=== PATIENT | male | born 1990 | race Caucasian/White ===

== ENCOUNTER → 2023-03-04 | Outpatient (CLI) | payer OTHER ==
[2023-03-04 15:58] LABS: BASOPHILS ABSOLUTE AUTO 0.05 K/mm3 (0.00-0.23); BASOPHILS PERCENT AUTO 1 % (0-2); EOSINOPHILS ABSOLUTE AUTO 0.08 K/mm3 (0.00-0.68); EOSINOPHILS PERCENT AUTO 2 % (0-6); Hematocrit 46.8 % (37.0-53.0); Hemoglobin 16.4 g/dL (13.5-17.5); IMMATURE GRAN ABSOLUTE AUTO 0.01 K/mm3 (0.00-0.10); IMMATURE GRAN PERCENT AUTO 0 % (0-1); LYMPHOCYTES ABSOLUTE AUTO 1.99 K/mm3 (0.84-5.20); LYMPHOCYTES PERCENT AUTO 39 % (21-46); MONOCYTES ABSOLUTE AUTO 0.36 K/mm3 (0.16-1.47); MONOCYTES PERCENT AUTO 7 % (4-13); Mean Corpuscular HGB 32.5 pg (26.0-34.0); Mean Corpuscular Volume 93 fL (80-100); Mean Platelet Volume 11.9 fL (9.1-12.4); NEUTROPHILS ABSOLUTE AUTO 2.56 K/mm3 (1.96-9.15); NEUTROPHILS PERCENT AUTO 51 % (41-73); Platelet Count 195 K/mm3 (150-400); RDW Coefficient Variation 12.4 % (11.7-14.2); RDW Standard Deviation 42.3 fL (35.1-46.3); Red Blood Cell Count 5.05 M/mm3 (4.30-5.90); White Blood Cell Count 5.05 K/mm3 (4.00-11.30)
[2023-03-04 16:07] LABS: Cholesterol 132 mg/dL (50-200); HDL Cholesterol 44 mg/dL (>39); LDL/HDL RATIO 1.7; Low Density Lipoprotein Chol 75 mg/dL (0-110); Triglycerides 65 mg/dL (30-140); Very Low Density Lipoprot Chol 13 mg/dL (6-28)
[2023-03-04 16:09] LABS: Thyroid Stimulating Hormone 0.348 uIU/mL (0.360-4.800)
[2023-03-05 14:11] LABS: A/G RATIO 1.8 (1.2-2.2); BILIRUBIN, TOTAL 0.7 mg/dL (0.0-1.2); CALCIUM, SERUM 9.8 mg/dL (8.7-10.2); CREATININE, SERUM 1.28 mg/dL (0.76-1.27); GLOBULIN, TOTAL 2.5 g/dL (1.5-4.5); POTASSIUM, SERUM 5.3 mmol/L (3.5-5.2); PROTEIN, TOTAL, SERUM 7.1 g/dL (6.0-8.5)
== END ==
LOC: LAB 12:00 → LAB SHORT 12:00
PROVIDERS: Nurse Practitioner Family
DX: Z13.1 Encounter for screening for diabetes mellitus (principal); Z13.6 Encounter for screening for cardiovascular disorders; F43.10 Post-traumatic stress disorder, unspecified
CPT/HCPCS: 80053; 80061; 83036; 84443; 85025